=== PATIENT | female | born 1995 | race Caucasian/White ===

== ENCOUNTER 2017-07-29 23:47 | Emergency (ER) | payer OTHER ==
[2017-07-30 01:01] LABS: ADD MAN DIFF? NO
[2017-07-30 01:05] LABS: WHITE BLOOD COUNT 10.7 10^3/ul (4.8-10.8)
[2017-07-30 01:05] LABS: BASOPHILS % 0.4 % (0.0-2.0); EOSINOPHILS # 0.2 10^3/ul (0.0-0.5); EOSINOPHILS % 1.8 % (0.0-7.0); HEMATOCRIT 37.6 % (37.0-47.0); HEMOGLOBIN 12.3 g/dl (12.0-16.0); LYMPHOCYTES # 3.7 10^3/ul (0.8-2.9); LYMPHOCYTES % 34.8 % (15.0-51.0); MEAN CORPUSCULAR HEMOGLOBIN 28.2 pg (29.0-33.0); MEAN CORPUSCULAR HGB CONC 32.7 g/dl (32.0-37.0); MEAN CORPUSCULAR VOLUME 86.2 fl (82.0-101.0); MEAN PLATELET VOLUME 9.4 fl (7.4-10.4); MONOCYTE # 0.8 10^3/ul (0.3-0.9); MONOCYTES % 7.7 % (0.0-11.0); NEUTROPHIL # 5.9 10^3/ul (1.6-7.5); NEUTROPHILS % 54.9 % (39.0-77.0); PLATELET COUNT 283 10^3/UL (140-415); RED BLOOD COUNT 4.36 10^6/ul (4.20-5.40); RED CELL DISTRIBUTION WIDTH 13.2 % (11.5-14.5)
[2017-07-30 01:23] LABS: ADD UMIC YES; UR ASCORBIC ACID NEGATIVE (NEGATIVE); UR BACTERIA FEW /HPF (NONE SEEN); UR BILIRUBIN (Dip) NEGATIVE (NEGATIVE); UR BLOOD (Dip) 1+ mg/dL (NEGATIVE); UR CLARITY CLEAR (CLEAR); UR COLOR STRAW (YELLOW); UR GLUCOSE (Dip) NEGATIVE (NEGATIVE); UR KETONES (Dip) NEGATIVE (NEGATIVE); UR LEUKOCYTE ESTERASE (Dip) NEGATIVE Leu/ul (NEGATIVE); UR NITRITE (Dip) NEGATIVE (NEGATIVE); UR RBC 0 /HPF (0-5); UR SPECIFIC GRAVITY (Dip) 1.008 (1.003-1.030); UR TOTAL PROTEIN (Dip) NEGATIVE (NEGATIVE); UR UROBILINOGEN (Dip) NEGATIVE (NEGATIVE); UR WBC 0 /HPF (0-5)
== END 2017-07-30 02:41 | disposition home or self-care (01) ==
LOC: FTE 23:47
DX: O20.9 Hemorrhage in early pregnancy, unspecified (principal); R10.2 Pelvic and perineal pain; Z3A.01 Less than 8 weeks gestation of pregnancy
CPT/HCPCS: 36415; 76801; 76817; 81001; 84702; 85025; 86900; 86901; 99284-25

== ENCOUNTER 2017-09-12 20:21 | Emergency (ER) | payer OTHER ==
[2017-09-13 01:01] LABS: URINE PH (Dip) POC 6.5 (5.0-8.5)
[2017-09-13 01:01] LABS: URINE BLOOD (Dip) POC 1+ (NEGATIVE); URINE GLUCOSE (Dip) POC Negative (NEGATIVE); URINE KETONES (Dip) POC Negative (NEGATIVE); URINE LEUKOCYTE EST (Dip) POC Negative (NEGATIVE); URINE NITRITE (Dip) POC Positive (NEGATIVE); URINE TOTAL PROTEIN POC Negative (NEGATIVE)
[2017-09-13] MEDS: ACETAMINOPHEN 325 MG TAB PO (01:05)
[2017-09-13 01:11] LABS: URINE PH (Dip) POC 6.5 (5.0-8.5)
[2017-09-13 01:11] LABS: URINE BLOOD (Dip) POC 1+ (NEGATIVE); URINE GLUCOSE (Dip) POC Negative (NEGATIVE); URINE KETONES (Dip) POC Negative (NEGATIVE); URINE LEUKOCYTE EST (Dip) POC Negative (NEGATIVE); URINE NITRITE (Dip) POC Positive (NEGATIVE); URINE TOTAL PROTEIN POC Trace (NEGATIVE)
[2017-09-13 13:52] LABS: URINE BLOOD (Dip) POC 1+ (NEGATIVE); URINE GLUCOSE (Dip) POC Negative (NEGATIVE); URINE KETONES (Dip) POC Negative (NEGATIVE); URINE LEUKOCYTE EST (Dip) POC Negative (NEGATIVE); URINE NITRITE (Dip) POC Positive (NEGATIVE); URINE TOTAL PROTEIN POC Trace (NEGATIVE)
[2017-09-13 13:52] LABS: URINE PH (Dip) POC 6.5 (5.0-8.5)
== END 2017-09-13 02:50 | disposition home or self-care (01) ==
LOC: FTE 20:21
DX: O23.12 Infections of bladder in pregnancy, second trimester (principal); Z3A.18 18 weeks gestation of pregnancy
CPT/HCPCS: 81003; 87086; 99283

== ENCOUNTER 2018-01-05 23:14 | Outpatient (CLI) | payer OTHER ==
[2018-01-06 00:30] LABS: ADD UMIC NO; UR ASCORBIC ACID NEGATIVE (NEGATIVE); UR BILIRUBIN (Dip) NEGATIVE (NEGATIVE); UR BLOOD (Dip) NEGATIVE (NEGATIVE); UR CLARITY CLEAR (CLEAR); UR COLOR YELLOW (YELLOW); UR GLUCOSE (Dip) NEGATIVE (NEGATIVE); UR KETONES (Dip) NEGATIVE (NEGATIVE); UR LEUKOCYTE ESTERASE (Dip) NEGATIVE Leu/ul (NEGATIVE); UR NITRITE (Dip) NEGATIVE (NEGATIVE); UR SPECIFIC GRAVITY (Dip) 1.018 (1.003-1.030); UR TOTAL PROTEIN (Dip) NEGATIVE (NEGATIVE); UR UROBILINOGEN (Dip) NEGATIVE (NEGATIVE)
[2018-01-06 01:37] LABS: ADD MAN DIFF? NO
[2018-01-06 02:56] LABS: BASOPHILS % 0.4 % (0.0-2.0); EOSINOPHILS # 0.1 10^3/ul (0.0-0.5); EOSINOPHILS % 1.1 % (0.0-7.0); HEMATOCRIT 34.9 % (37.0-47.0); HEMOGLOBIN 11.4 g/dl (12.0-16.0); LYMPHOCYTES # 3.5 10^3/ul (0.8-2.9); LYMPHOCYTES % 30.4 % (15.0-51.0); MEAN CORPUSCULAR HEMOGLOBIN 27.5 pg (29.0-33.0); MEAN CORPUSCULAR HGB CONC 32.7 g/dl (32.0-37.0); MEAN CORPUSCULAR VOLUME 84.3 fl (82.0-101.0); MEAN PLATELET VOLUME 9.3 fl (7.4-10.4); MONOCYTE # 0.9 10^3/ul (0.3-0.9); MONOCYTES % 7.5 % (0.0-11.0); NEUTROPHIL # 6.8 10^3/ul (1.6-7.5); NEUTROPHILS % 59.9 % (39.0-77.0); PLATELET COUNT 287 10^3/UL (140-415); RED BLOOD COUNT 4.14 10^6/ul (4.20-5.40); RED CELL DISTRIBUTION WIDTH 13.5 % (11.5-14.5)
[2018-01-06 02:56] LABS: WHITE BLOOD COUNT 11.4 10^3/ul (4.8-10.8)
== END 2018-01-06 03:51 | disposition home or self-care (01) ==
LOC: OBT 23:14 → L-D 23:15
DX: O26.893 Other specified pregnancy related conditions, third trimester (principal); Z3A.33 33 weeks gestation of pregnancy
CPT/HCPCS: 76817; 76818; 81003; 85025; 87086

== ENCOUNTER 2018-03-04 13:49 | Outpatient (CLI) | payer OTHER ==
[2018-03-04 15:48] LABS: ADD UMIC NO; UR ASCORBIC ACID NEGATIVE (NEGATIVE); UR BACTERIA FEW /HPF (NONE SEEN); UR BILIRUBIN (Dip) NEGATIVE (NEGATIVE); UR BLOOD (Dip) NEGATIVE (NEGATIVE); UR CLARITY SLIGHTLY CLOUDY (CLEAR); UR COLOR YELLOW (YELLOW); UR GLUCOSE (Dip) NEGATIVE (NEGATIVE); UR KETONES (Dip) TRACE mg/dL (NEGATIVE); UR LEUKOCYTE ESTERASE (Dip) NEGATIVE Leu/ul (NEGATIVE); UR NITRITE (Dip) NEGATIVE (NEGATIVE); UR RBC 0 /HPF (0-5); UR SQUAMOUS EPITHELIAL CELL FEW /HPF (FEW); UR TOTAL PROTEIN (Dip) NEGATIVE (NEGATIVE); UR UROBILINOGEN (Dip) NEGATIVE (NEGATIVE); UR WBC 1 /HPF (0-5)
== END 2018-03-04 17:30 | disposition home or self-care (01) ==
LOC: OBT 13:49 → L-D 13:49 → OBT 16:00 → L-D 16:00
DX: O62.9 Abnormality of forces of labor, unspecified (principal); Z3A.37 37 weeks gestation of pregnancy
CPT/HCPCS: 76818; 81001; 81003; 87086

== ENCOUNTER 2018-03-06 10:06 | Outpatient (CLI) | payer OTHER ==
[2018-03-06 12:44] LABS: RUPTURE FETAL MEMBRANES NEGATIVE (NEGATIVE)
== END 2018-03-06 13:05 | disposition home or self-care (01) ==
LOC: OBT 10:06 → L-D 10:06 → OBT 13:05
DX: O36.8130 Decreased fetal movements, third trimester, not applicable or unspecified (principal); Z3A.37 37 weeks gestation of pregnancy
CPT/HCPCS: 76818; 84112

== ENCOUNTER 2018-03-16 15:50 | Inpatient (IN) | payer OTHER ==
[2018-03-16 16:57] LABS: ADD UMIC NO; UR ASCORBIC ACID NEGATIVE (NEGATIVE); UR BILIRUBIN (Dip) NEGATIVE (NEGATIVE); UR BLOOD (Dip) NEGATIVE (NEGATIVE); UR CLARITY CLEAR (CLEAR); UR COLOR YELLOW (YELLOW); UR GLUCOSE (Dip) NEGATIVE (NEGATIVE); UR KETONES (Dip) NEGATIVE (NEGATIVE); UR LEUKOCYTE ESTERASE (Dip) NEGATIVE Leu/ul (NEGATIVE); UR NITRITE (Dip) NEGATIVE (NEGATIVE); UR SPECIFIC GRAVITY (Dip) 1.023 (1.003-1.030); UR TOTAL PROTEIN (Dip) NEGATIVE (NEGATIVE); UR UROBILINOGEN (Dip) 1+ mg/dL (NEGATIVE)
[2018-03-16] MEDS ORDERED: BUTORPHANOL 2 MG INJ IV (17:30)
[2018-03-16] MEDS ORDERED: MISOPROSTOL 200 MCG TAB PR (17:30)
[2018-03-16] MEDS ORDERED: METHYLERGONOVINE 0.2 MG INJ IM (17:30)
[2018-03-16] MEDS ORDERED: OXYTOCIN 30 UNITS/LR 500 ML IV (17:30)
[2018-03-16 18:14] LABS: ADD MAN DIFF? NO
[2018-03-16 18:16] LABS: WHITE BLOOD COUNT 9.8 10^3/ul (4.8-10.8)
[2018-03-16 18:16] LABS: BASOPHILS % 0.3 % (0.0-2.0); EOSINOPHILS # 0.1 10^3/ul (0.0-0.5); EOSINOPHILS % 0.6 % (0.0-7.0); HEMOGLOBIN 11.7 g/dl (12.0-16.0); LYMPHOCYTES # 2.3 10^3/ul (0.8-2.9); LYMPHOCYTES % 23.2 % (15.0-51.0); MEAN CORPUSCULAR HEMOGLOBIN 27.5 pg (29.0-33.0); MEAN CORPUSCULAR HGB CONC 33.4 g/dl (32.0-37.0); MEAN CORPUSCULAR VOLUME 82.2 fl (82.0-101.0); MEAN PLATELET VOLUME 9.6 fl (7.4-10.4); MONOCYTE # 0.7 10^3/ul (0.3-0.9); MONOCYTES % 6.9 % (0.0-11.0); NEUTROPHIL # 6.7 10^3/ul (1.6-7.5); NEUTROPHILS % 68.6 % (39.0-77.0); PLATELET COUNT 232 10^3/UL (140-415); RED BLOOD COUNT 4.26 10^6/ul (4.20-5.40); RED CELL DISTRIBUTION WIDTH 13.9 % (11.5-14.5)
[2018-03-16 18:36] LABS: INR 0.97
[2018-03-16 18:37] LABS: PARTIAL THROMBOPLASTIN TIME 28.3 Sec (25.0-35.0)
[2018-03-16] MEDS: LACTATED RINGER'S 1,000 ML IV* ×2 (18:56→23:39)
[2018-03-16] MEDS: AMPICILLIN 2 GM/NS (PMX) 100 ML IV (19:00)
[2018-03-16] MEDS: AMPICILLIN 1 GM/NS (PMX) 50 ML IV (21:47)
[2018-03-17] MEDS: AMPICILLIN 1 GM/NS (PMX) 50 ML IV ×6 (02:39→21:56)
[2018-03-17] MEDS: LACTATED RINGER'S 1,000 ML IV* ×2 (07:23→16:09)
[2018-03-17] MEDS: OXYTOCIN 30 UNITS/LR 500 ML IV (09:41)
[2018-03-17 15:10] LABS: RAPID PLASMA REAGIN NONREACTIVE (NR)
[2018-03-18] MEDS: LACTATED RINGER'S 1,000 ML IV* ×3 (00:58→18:57)
[2018-03-18] MEDS: AMPICILLIN 1 GM/NS (PMX) 50 ML IV ×6 (01:29→21:57)
[2018-03-18] MEDS: OXYTOCIN 30 UNITS/LR 500 ML IV (13:51)
[2018-03-19] MEDS: LACTATED RINGER'S 1,000 ML IV* ×4 (00:31→21:20)
[2018-03-19] MEDS ORDERED: FENTAnyl 2MCG/ML-ROPIV 0.2% 100 ML (01:06)
[2018-03-19] MEDS: AMPICILLIN 1 GM/NS (PMX) 50 ML IV ×2 (01:49→05:17)
[2018-03-19] MEDS: OXYTOCIN 30 UNITS/LR 500 ML IV ×3 (05:07→10:01)
[2018-03-19] MEDS: MINERAL OIL LIGHT 10 ML VIAL TOP (09:40)
[2018-03-19] MEDS: CARBOPROST 250 MCG INJ IM (09:56)
[2018-03-19] MEDS: LIDOCAINE 1% (MPF) 30 ML INJ INJ (10:02)
[2018-03-19] MEDS: IBUPROFEN 600 MG TAB PO ×4 (10:15→23:31)
[2018-03-19] MEDS: CEPHALEXIN 500 MG CAP PO ×3 (12:30→23:31)
[2018-03-19] MEDS ORDERED: MISOPROSTOL 200 MCG TAB PR (12:30)
[2018-03-19] MEDS ORDERED: ZOLPIDEM 5 MG TAB PO (12:30)
[2018-03-19] MEDS ORDERED: METHYLERGONOVINE 0.2 MG INJ IM (12:30)
[2018-03-19] MEDS ORDERED: DIBUCAINE 1% 30 GM OINT PR (12:30)
[2018-03-19] MEDS ORDERED: OXYTOCIN 30 UNITS/LR 500 ML IV (12:30)
[2018-03-19] MEDS ORDERED: CARBOPROST 250 MCG INJ IM (12:30)
[2018-03-19] MEDS: HYDROCODONE/APAP (5/325) TAB PO ×2 (13:11→21:20)
[2018-03-19] MEDS: LANOLIN 7 GM TUBE TOP (14:16)
[2018-03-19] MEDS: BENZOCAINE 20% 56 ML SPRAY TOP (14:16)
[2018-03-19] MEDS: WITCH HAZEL/GLYCERIN PAD PR (14:16)
[2018-03-19] MEDS: SENNA/DOCUSATE NA (8.6MG/50MG) TAB PO (21:00)
[2018-03-19] MEDS: MAGNESIUM HYDROXIDE 30ML CUP PO (21:00)
[2018-03-20] MEDS: LACTATED RINGER'S 1,000 ML IV* (04:25)
[2018-03-20] MEDS: IBUPROFEN 600 MG TAB PO ×4 (05:38→23:52)
[2018-03-20] MEDS: CEPHALEXIN 500 MG CAP PO ×4 (05:38→23:52)
[2018-03-20 07:17] LABS: ADD MAN DIFF? NO
[2018-03-20 07:20] LABS: BASOPHILS % 0.3 % (0.0-2.0); EOSINOPHILS # 0.1 10^3/ul (0.0-0.5); EOSINOPHILS % 0.6 % (0.0-7.0); HEMOGLOBIN 8.8 g/dl (12.0-16.0); LYMPHOCYTES # 3.6 10^3/ul (0.8-2.9); LYMPHOCYTES % 25.2 % (15.0-51.0); MEAN CORPUSCULAR HEMOGLOBIN 27.8 pg (29.0-33.0); MEAN CORPUSCULAR HGB CONC 32.6 g/dl (32.0-37.0); MEAN CORPUSCULAR VOLUME 85.4 fl (82.0-101.0); MEAN PLATELET VOLUME 10.1 fl (7.4-10.4); MONOCYTE # 0.9 10^3/ul (0.3-0.9); MONOCYTES % 6.2 % (0.0-11.0); NEUTROPHIL # 9.7 10^3/ul (1.6-7.5); NEUTROPHILS % 67.2 % (39.0-77.0); PLATELET COUNT 187 10^3/UL (140-415); RED BLOOD COUNT 3.16 10^6/ul (4.20-5.40); RED CELL DISTRIBUTION WIDTH 13.9 % (11.5-14.5)
[2018-03-20 07:20] LABS: WHITE BLOOD COUNT 14.4 10^3/ul (4.8-10.8)
[2018-03-20] MEDS: HYDROCODONE/APAP (5/325) TAB PO (07:38)
[2018-03-20 08:21] LABS: HEPATITIS B SURFACE ANTIGEN NEGATIVE (NEGATIVE)
[2018-03-20] MEDS: MAGNESIUM HYDROXIDE 30ML CUP PO ×2 (09:00→21:00)
[2018-03-20] MEDS: SENNA/DOCUSATE NA (8.6MG/50MG) TAB PO ×2 (09:00→21:14)
[2018-03-20] MEDS: WITCH HAZEL/GLYCERIN PAD PR (21:30)
[2018-03-20] MEDS: BENZOCAINE 20% 56 ML SPRAY TOP (21:30)
[2018-03-21] MEDS: IBUPROFEN 600 MG TAB PO ×2 (05:54→11:25)
[2018-03-21] MEDS: CEPHALEXIN 500 MG CAP PO ×2 (05:54→11:25)
[2018-03-21 08:34] LABS: ADD MAN DIFF? NO
[2018-03-21 08:39] LABS: BASOPHILS % 0.4 % (0.0-2.0); EOSINOPHILS # 0.1 10^3/ul (0.0-0.5); HEMATOCRIT 26.3 % (37.0-47.0); HEMOGLOBIN 8.4 g/dl (12.0-16.0); LYMPHOCYTES # 3.3 10^3/ul (0.8-2.9); LYMPHOCYTES % 30.9 % (15.0-51.0); MEAN CORPUSCULAR HEMOGLOBIN 27.4 pg (29.0-33.0); MEAN CORPUSCULAR HGB CONC 31.9 g/dl (32.0-37.0); MEAN CORPUSCULAR VOLUME 85.7 fl (82.0-101.0); MEAN PLATELET VOLUME 10.1 fl (7.4-10.4); MONOCYTE # 0.7 10^3/ul (0.3-0.9); MONOCYTES % 6.9 % (0.0-11.0); NEUTROPHIL # 6.5 10^3/ul (1.6-7.5); NEUTROPHILS % 60.3 % (39.0-77.0); PLATELET COUNT 204 10^3/UL (140-415); RED BLOOD COUNT 3.07 10^6/ul (4.20-5.40); RED CELL DISTRIBUTION WIDTH 14.6 % (11.5-14.5)
[2018-03-21 08:39] LABS: WHITE BLOOD COUNT 10.8 10^3/ul (4.8-10.8)
[2018-03-21] MEDS: MAGNESIUM HYDROXIDE 30ML CUP PO (09:00)
[2018-03-21] MEDS: DIPHTH/TET/ACEL PERTUSS (ADULT) 0.5 ML VIAL IM* (09:00)
[2018-03-21] MEDS: VARICELLA VACCINE LIVE/PF 1,350 UNIT/0.5 ML ML SC* (09:00)
[2018-03-21] MEDS: MEASLES,MUMPS,RUBELLA VACCINE INJ SC* (09:00)
[2018-03-21] MEDS: SENNA/DOCUSATE NA (8.6MG/50MG) TAB PO (10:13)
== END 2018-03-21 12:51 | disposition home or self-care (01) | DRG 774 ==
LOC: OBT 15:50 → PP1 03-19 11:26 → L-D 15:51 → OBT 17:10 → L-D 17:10
PROC: 10E0XZZ Delivery of Products of Conception, External Approach (ICD-10-PCS; principal; 2018-03-19)
PROC: 0HQ9XZZ Repair Perineum Skin, External Approach (ICD-10-PCS; 2018-03-19)
PROC: 3E033VJ Introduction of Other Hormone into Peripheral Vein, Percutaneous Approach (ICD-10-PCS; 2018-03-19)
DX: O70.0 First degree perineal laceration during delivery (principal); O72.1 Other immediate postpartum hemorrhage; Z3A.39 39 weeks gestation of pregnancy; Z37.0 Single live birth
CPT/HCPCS: 62319; 76815; 76818; 81003; 85025; 85610; 85730; 86592; 86850; 86900; 86901; 87086; 87340